=== PATIENT | male | born 1940 | race Caucasian/White ===

== ENCOUNTER → 2020-11-05 | Outpatient (CLI) | payer MEDICARE, BC | LOC: VAS 15:36 | DX: M17.12 Unilateral primary osteoarthritis, left knee (principal); M79.662 Pain in left lower leg ==

== ENCOUNTER → 2021-02-03 | Outpatient (CLI) | payer MEDICARE, BC | LOC: RAD 08:49 | DX: R60.0 Localized edema (principal) ==